=== PATIENT | female | born 1965 | race Caucasian/White ===

== ENCOUNTER → 2017-01-20 | Outpatient (CLI) | payer BC ==
--- NOTE | 2017-01-21 10:43 | MM ---
Reason for exam: screening (asymptomatic). Last mammogram was performed 1 year and 3 months ago. History: Patient is postmenopausal and had first child at age 35. Family history of breast cancer in grandmother at age 21. Physical Findings: A clinical breast exam by your physician is recommended on an annual basis and results should be correlated with mammographic findings. MG Screening Mammo Implant/CAD Bilateral CC, MLO, and ID view(s) were taken. Prior study comparison: October 29, 2015, bilateral MG screening mammo w CAD. September 05, 2013, bilateral digital screening mammo w/CAD. There are scattered fibroglandular densities. Implants are intact. No significant changes when compared with prior studies. ASSESSMENT: Negative, BI-RAD 1 RECOMMENDATION: Routine screening mammogram of both breasts in 1 year.
== END | disposition home or self-care (01) ==
LOC: RADMAMWWP 08:14
PROVIDERS: ATTEND Obstetrics & Gynecology
DX: Z12.31 Encounter for screening mammogram for malignant neoplasm of breast (principal); Z98.82 Breast implant status

== ENCOUNTER → 2018-04-28 | Outpatient (CLI) | payer BC | END | disposition home or self-care (01) | LOC: LABWHC1 08:22 | PROVIDERS: ATTEND Obstetrics & Gynecology | DX: N95.1 Menopausal and female climacteric states (principal); R68.82 Decreased libido | CPT/HCPCS: 36415; 82670; 83001; 84403 ==

== ENCOUNTER → 2018-04-28 | Outpatient (CLI) | payer BC ==
--- NOTE | 2018-04-28 14:12 | MM ---
Reason for exam: screening (asymptomatic). Last mammogram was performed 1 year and 3 months ago. History: Patient is postmenopausal and had first child at age 35. Family history of breast cancer in grandmother at age 21. Silicone gel implants in both breasts, January 2016. Physical Findings: A clinical breast exam by your physician is recommended on an annual basis and results should be correlated with mammographic findings. MG Screening Mammo Implant/CAD Bilateral CC, MLO, and ID view(s) were taken. Prior study comparison: January 20, 2017, bilateral MG screening mammo implant/CAD. October 29, 2015, bilateral MG screening mammo w CAD. The breast tissue is heterogeneously dense. This may lower the sensitivity of mammography. Asymmetric breast tissue left outer breast, stable. There is no discrete abnormality. Bilateral subpectoral implants redemonstrated. ASSESSMENT: Benign, BI-RAD 2 RECOMMENDATION: Routine screening mammogram of both breasts in 1 year.
== END | disposition home or self-care (01) ==
LOC: RADMAMWWP 07:40
PROVIDERS: ATTEND Obstetrics & Gynecology
DX: Z12.31 Encounter for screening mammogram for malignant neoplasm of breast (principal); Z80.3 Family history of malignant neoplasm of breast
CPT/HCPCS: 77067

== ENCOUNTER → 2019-06-02 | Outpatient (CLI) | payer BC ==
[2019-06-02 16:38] LABS: Chol/HDL Ratio 3.71; LDL Cholesterol,Calculated 167.4 mg/dL (0.0-131.0); VLDL Calculation 22.6 mg/dL (5.00-40.00)
[2019-06-02 22:18] LABS: Hemoglobin A1C 5.5 % (4.0-6.0)
== END | disposition home or self-care (01) ==
LOC: LABWHC1 07:17
PROVIDERS: ATTEND Obstetrics & Gynecology
DX: R73.9 Hyperglycemia, unspecified (principal); E05.90 Thyrotoxicosis, unspecified without thyrotoxic crisis or storm
CPT/HCPCS: 36415; 80061; 82670; 82947; 83001; 83036; 84403; 84436; 84443; 84481

== ENCOUNTER → 2019-08-09 | Outpatient (CLI) | payer BC ==
--- NOTE | 2019-08-10 11:47 | MM ---
Reason for exam: screening (asymptomatic). Last mammogram was performed 1 year and 3 months ago. History: Patient is postmenopausal and had first child at age 35. Silicone gel implants in both breasts, January 2016. Took progesterone for 2 years. Took other hormone for 2 years. Physical Findings: A clinical breast exam by your physician is recommended on an annual basis and results should be correlated with mammographic findings. MG Screening Mammo Implant/CAD Bilateral CC, MLO, and ID view(s) were taken. Prior study comparison: April 28, 2018, bilateral MG screening mammo implant/CAD. January 20, 2017, bilateral MG screening mammo implant/CAD. There are scattered fibroglandular densities. No suspicious abnormality. Prepectoral silicone implants bilaterally. No significant changes when compared with prior studies. ASSESSMENT: Negative, BI-RAD 1 RECOMMENDATION: Routine screening mammogram of both breasts in 1 year.
== END | disposition home or self-care (01) ==
LOC: RADMAMWWP 09:30
PROVIDERS: ATTEND Obstetrics & Gynecology
DX: Z12.31 Encounter for screening mammogram for malignant neoplasm of breast (principal)
CPT/HCPCS: 77067

== ENCOUNTER → 2020-05-02 | Outpatient (CLI) | payer BC ==
[2020-05-02 14:10] LABS: Basophils # (A) 0.1 k/uL (0-0.2); Basophils % (A) 1 %; Eosinophils # (A) 0.2 k/uL (0-0.7); Eosinophils % (A) 2 %; HCT 47.8 % (34.0-46.0); Lymphocytes # (A) 2.5 k/uL (1.0-4.8); Lymphocytes % (A) 25 %; MCH 28.7 pg (25.0-35.0); MCHC 31.3 g/dL (31.0-37.0); MCV 91.6 fL (80.0-100.0); Mean Platelet Volume 7.5; Monocytes # (A) 0.6 k/uL (0-1.0); Monocytes % (A) 6 %; Neutrophils # (A) 6.3 k/uL (1.3-7.7); Neutrophils % (A) 63 %; Platelet Count 322 k/uL (150-450); RBC 5.21 m/uL (3.80-5.40); RDW 12.7 % (11.5-15.5); WBC 9.9 k/uL (3.8-10.6)
== END | disposition home or self-care (01) ==
LOC: LABPAT 12:36
PROVIDERS: ATTEND Obstetrics & Gynecology
DX: Z01.818 Encounter for other preprocedural examination (principal); M48.02 Spinal stenosis, cervical region; N95.0 Postmenopausal bleeding
CPT/HCPCS: 36415; 85025; 93005

== ENCOUNTER 2020-05-11 07:12 | Day surgery (SDC) | payer BC ==
[2020-05-07 11:47] VITALS: BMI 35.9
[~2020-05-11 07:12] MED LIST: DEXAMETHASONE SOD PHOSPHATE 10 MG/ML 1 ML VIAL IV ONE; HYDROmorphone 0.5 MG/0.5 ML SYRINGE IVP PRN; LACTATED RINGERS 1,000 ML IV SCH; MIDAZOLAM 2 MG/2 ML VIAL IV PRN; ONDANSETRON 4 MG/2 ML VIAL IVP ONE; Pre Op ABX Message 1 EACH MISC MISCELLANE ONE; SCOPOLAMINE 1.5MG/72HR PATCH TRANSDERM ONE
[2020-05-11] MEDS ORDERED: ONDANSETRON 4 MG/2 ML VIAL ONE (07:44)
[2020-05-11] MEDS ORDERED: LIDOCAINE 1% (10MG/ML) FOR IV START INTRADERMA ONE (07:55)
[2020-05-11 08:01] VITALS: TEMP 97.7
[2020-05-11] MEDS ORDERED: PROPOFOL 10 MG/ML 20 ML VIAL IV ONE (08:40)
[2020-05-11] MEDS ORDERED: KETOROLAC 30 MG/ML 1 ML VIAL ONE (08:40)
[2020-05-11] MEDS ORDERED: fentaNYL (PF) 50 MCG/ML 2 ML AMP ONE (08:40)
[2020-05-11] MEDS ORDERED: LIDOCAINE 1% INJ 10MG/ML (20 ML MDV) ONE (08:40)
[2020-05-11] MEDS ORDERED: MIDAZOLAM 2 MG/2 ML VIAL ONE (08:40)
[2020-05-11] MEDS ORDERED: SIMETHICONE 80 MG CHEWABLE PO PRN (09:14)
[2020-05-11] MEDS ORDERED: KETOROLAC 15 MG/ML 1 ML VIAL IVP PRN (09:14)
[2020-05-11] MEDS ORDERED: METOCLOPRAMIDE 5 MG/ML 2 ML VIAL IVP PRN (09:14)
[2020-05-11] MEDS ORDERED: ONDANSETRON 4 MG/2 ML VIAL IVP PRN (09:14)
[2020-05-11] MEDS ORDERED: Acetaminophen-Codeine 300-30mg TAB PO PRN ×2 (09:14)
[2020-05-11] MEDS ORDERED: diphenhydrAMINE 50 MG/ML 1 ML VIAL IVP PRN (09:14)
[2020-05-11] MEDS ORDERED: IBUPROFEN 600 MG TAB PO PRN (09:14)
[2020-05-11] MEDS ORDERED: LACTATED RINGERS 1,000 ML IV SCH (09:15)
--- NOTE | 2020-05-11 09:20 | P.OP ---
Date of Procedure: 05/11/20 Preoperative Diagnosis: #1. Postmenopausal bleeding #2. Cervical stenosis Postoperative Diagnosis: Same Procedure(s) Performed: #1. Diagnostic hysteroscopy 2. Dilation and curettage Anesthesia: other (Gen. by LMA) Surgeon: Jim Fortune Estimated Blood Loss (ml): 2 IV fluids (ml): 500 Urine output (ml): 100 Pathology: other (Endometrial curettings) Condition: stable Disposition: PACU Operative Findings: Preoperative pelvic examination demonstrated a roughly 4-5 week midplane normal shaped uterus with normal adnexa bilaterally. Uterus was very high in the pelvis. Intraoperatively, there was stenosis present which was ultimately broken down with a small dilator. The uterus sounded to 8 cm. The hysteroscopic views of the endometrial cavity demonstrated only shaggy endometrium with no evidence of polyps, fibroids, or any other obvious pathology. The bilateral tubal ostia were noted. A small to moderate amount of tissue was returned onto a Telfa. There was minimal ongoing bleeding following the procedure. The patient is not a candidate for vaginal hysterectomy. Description of Procedure: The patient was prepped and draped in usual fashion after general anesthesia was admission by the anesthesiologist. A weighted speculum was placed and the bladder drained of approximately 100 mL of clear jan urine. The anterior lip cervix was ultimately grasped with a single-tooth tenaculum and attempts to pass a uterine sound were unsuccessful secondary to stenosis. The smallest uterine dilator was then utilized to enter the uterus at which time serial dilation was carried out to admit the sound which demonstrated a depth of 8 cm. Further serial dilation was carried out to admit the diagnostic hysteroscope which was placed in the fundus the uterus and the cavity distended with saline. The findings are as noted above. There was no obvious pathology other than a moderate amount of shaggy endometrial tissue primarily along the posterior wall of the uterus. The uterine/tubal ostia were seen bilaterally. After adequate hysteroscopy been performed, the scope was removed and set aside and a small sharp curette introduced into the cavity where the endometrium was thoroughly and circumferentially curetted onto a Telfa placed in the vagina. There is a small to slightly more than small amount of tissue returned on to the cavity and the typical gritty texture was encountered throughout. After 2-3 circumferential passes were carried out, the curet was set aside and the Telfa passed for placement in a container for pathology. There was no ongoing bleeding from the cervix the. The tenaculum was removed and was noted to not be bleeding either. All instrumentation was then removed and procedure terminated. Assessment a blood loss for the entire case was approximately 2 mL. There were no complications. All sponge, instrument, and needle counts were correct. The patient tolerated the procedure well and proceeded to the recovery room in stable condition.
[2020-05-11] MEDS ORDERED: LACTATED RINGERS 1,000 ML IV ONE ×2 (09:30)
[2020-05-11 10:08] VITALS: PULSE 73; RESP 18
[2020-05-11 10:25] VITALS: BP 152/67
== END 2020-05-11 10:52 | disposition home or self-care (01) ==
LOC: OR 07:12
PROVIDERS: ATTEND Obstetrics & Gynecology
DX: N88.2 Stricture and stenosis of cervix uteri (principal); N95.0 Postmenopausal bleeding; G90.50 Complex regional pain syndrome I, unspecified; F32.9 Major depressive disorder, single episode, unspecified; I10 Essential (primary) hypertension; G47.33 Obstructive sleep apnea (adult) (pediatric); E07.9 Disorder of thyroid, unspecified; Z98.51 Tubal ligation status; Z98.890 Other specified postprocedural states; Z79.899 Other long term (current) drug therapy; Z79.890 Hormone replacement therapy; Z88.1 Allergy status to other antibiotic agents; Z88.0 Allergy status to penicillin
CPT/HCPCS: 58558; J2250; J1100; J2405; J2001; J3010; J1885; J2704; 88305

== ENCOUNTER → 2020-12-14 | Outpatient (CLI) | payer BC ==
--- NOTE | 2020-12-20 10:40 | MM ---
Reason for exam: screening (asymptomatic). Last mammogram was performed 1 year and 4 months ago. History: Patient is postmenopausal and had first child at age 35. Silicone gel implants in both breasts, January 2016. Took progesterone for 2 years. Took other hormone for 2 years. Physical Findings: A clinical breast exam by your physician is recommended on an annual basis and results should be correlated with mammographic findings. MG Screening Mammo Implant/CAD Bilateral CC, MLO, and ID view(s) were taken. Prior study comparison: August 09, 2019, bilateral MG screening mammo implant/CAD. April 28, 2018, bilateral MG screening mammo implant/CAD. There are scattered fibroglandular densities. Retropectoral silicone implants. Posterior lateral asymmetric density on the left CC view was present in 2017. No significant changes when compared with prior studies. ASSESSMENT: Benign, BI-RAD 2 RECOMMENDATION: Routine screening mammogram of both breasts in 1 year.
== END | disposition home or self-care (01) ==
LOC: RADMAMWWP 16:43
PROVIDERS: ATTEND Obstetrics & Gynecology
DX: Z12.31 Encounter for screening mammogram for malignant neoplasm of breast (principal)
CPT/HCPCS: 77067

== ENCOUNTER 2023-01-17 09:26 | Emergency (ER) | payer BC ==
[2023-01-17 09:41] VITALS: TEMP 98
[2023-01-17] MEDS ORDERED: KETOROLAC 15 MG/ML 1 ML VIAL IM STA (09:49)
[2023-01-17] MEDS ORDERED: HYDROcodone/APAP 5-325MG 1 EACH TAB PO STA (09:49)
[2023-01-17] MEDS ORDERED: BACLOFEN 10 MG TAB PO ONE (09:49)
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
--- NOTE | 2023-01-17 10:24 | XR ---
Number spine HISTORY: Back pain COMPARISON: None. TECHNIQUE: 3 views lumbar spine were obtained. These: The lumbar vertebral segments are normal in height and alignment and there is no fracture subluxation . The disc spaces are well-maintained in height and there is no significant degenerative disc disease . Facet joints are intact. There is no spondylolysis or spondylolisthesis. IMPRESSION: No significant abnormality seen.
--- NOTE | 2023-01-17 10:25 | XR ---
Right hip. HISTORY: Pain without trauma COMPARISON: None. TECHNIQUE: 2 views the right hip were obtained. FINDINGS: There is no fracture, dislocation, intraosseous or intra-articular abnormality. There are no soft tis micaela abnormalities. IMPRESSION: No significant abnormality seen.
[2023-01-17] MEDS ORDERED: ACET/COD 300 MG/30 MG STARTER PACK 6 TAB BTL PO STA (10:42)
[2023-01-17 11:12] VITALS: BP 140/81; PULSE 68; RESP 16
== END 2023-01-17 11:12 | disposition home or self-care (01) ==
LOC: EC 09:26
DX: S39.012A Strain of muscle, fascia and tendon of lower back, initial encounter (principal); M54.41 Lumbago with sciatica, right side; I10 Essential (primary) hypertension; E07.9 Disorder of thyroid, unspecified; Z87.891 Personal history of nicotine dependence; Z79.890 Hormone replacement therapy; Z79.899 Other long term (current) drug therapy; Z88.0 Allergy status to penicillin; X58.XXXA Exposure to other specified factors, initial encounter
CPT/HCPCS: 72100; 73502; 99283; 96372; J1885

== ENCOUNTER → 2023-04-15 | Outpatient (CLI) | payer BC ==
--- NOTE | 2023-04-15 13:17 | MM ---
Reason for Exam: Screening (asymptomatic). Last mammogram was performed 2 year(s) and 4 month(s) ago. Patient History: Menarche at age 11. First Full-Term at age 35. Late child-bearing (after 30). Postmenopausal. Patient used Progesterone for 2 years. 01/2016, Bilateral Implants. Risk Values: Hiral 5 year model risk: 1.9%. NCI Lifetime model risk: 10.2%. Prior Study Comparison: 04/28/2018 Bilateral Screening Mammogram, [facility]. 08/09/2019 Bilateral Screening Mammogram, [facility]. 12/14/2020 Bilateral Screening Mammogram, [facility]. Tissue Density: The breast tissue is heterogeneously dense. This may lower the sensitivity of mammography. Findings: Analyzed By CAD. Bilateral breast implants which appear intact. There is no suspicious group of microcalcifications or new suspicious mass in either breast. Overall Assessment: Negative, BI-RAD 1 Management: Screening Mammogram of both breasts in [address] [facility] will attempt to contact patient to return for supplemental views and ultrasound if indicated. Patient should continue monthly self-breast exams. A clinical breast exam by your physician is recommended on an annual basis. This exam should not preclude additional follow-up of suspicious palpable abnormalities. Note on Hiral scores and lifetime risk: 1. A Hiral score greater than 3% is considered moderate risk. If this is the case, consider specialist referral to assess eligibility for a risk reducing agent. 2. If overall lifetime risk for the development of breast cancer is 20% or higher, the patient may qualify for future screening with alternating mammogram and breast MRI. Electronically signed and approved by: Dejan Carpenter DO
== END | disposition home or self-care (01) ==
LOC: RADMAMWWP 10:50
PROVIDERS: ATTEND Obstetrics & Gynecology
DX: Z12.31 Encounter for screening mammogram for malignant neoplasm of breast (principal); Z78.0 Asymptomatic menopausal state; Z98.82 Breast implant status
CPT/HCPCS: 77067

== ENCOUNTER 2023-10-28 02:11 | Inpatient (IN) | payer BC ==
--- NOTE | 2023-10-28 02:31 | ED ---
Overdose HPI <Dixon Walters - Last Filed: 10/28/23 16:05> - General Source: patient, EMS Mode of arrival: EMS Limitations: no limitations <Lona Matias - Last Filed: 11/03/23 15:54> - General Chief Complaint: Overdose Stated Complaint: ETOH Time Seen by Provider: 10/28/23 02:20 - History of Present Illness Initial Comments: 58-year-old female presents to the emergency department after an overdose. She states that she drinks 6 [place] Light's starting at 4 PM. She then took 8, 1 mg Xanax tablets and four 5-325 mg [place] tablets. She states that she did this in an attempt to harm herself. She denies history of hospitalization for mental health. No history of suicide attempt. Denies homicidal ideations. No hallucinations. Denies any illicit substance abuse. No other alleviating, precipitating or modifying factors (Lona Matias) - Related Data Home Medications Medication Instructions Recorded Confirmed amLODIPine BESYLATE [Norvasc] 2.5 mg PO DAILY 05/07/20 10/28/23 Fluticasone Nasal [place] [Flonase 2 spray EA NOSTRIL DAILY 10/28/23 10/28/23 Nasal [place]] Ibuprofen [Motrin] 800 mg PO Q8H PRN 10/28/23 10/28/23 Losartan Potassium 50 mg PO DAILY 10/28/23 10/28/23 Oxybutynin Xl [Ditropan XL] 5 mg PO DAILY 10/28/23 10/28/23 Thyroid,Pork [Casing Builder Thyroid] 30 mg PO DAILY 10/28/23 10/28/23 Previous Rx's Medication Instructions Recorded Escitalopram [Lexapro] 10 mg PO DAILY 30 Days #30 tab 11/03/23 Gabapentin [Neurontin] 400 mg PO HS cap 11/03/23 Mirtazapine [Remeron] 15 mg PO HS 30 Days #30 tab 11/03/23 Allergies Allergy/AdvReac Type Severity Reaction Status Date / Time Penicillins Allergy Rash/Hives Verified 01/17/23 09:41 Review of Systems ROS Other: All systems not noted in ROS Statement are negative. <Dixon Walters - Last Filed: 10/28/23 16:05> ROS Other: All systems not noted in ROS Statement are negative. <Lona Matias - Last Filed: 11/03/23 15:54> ROS Statement: Those systems with pertinent positive or pertinent negative responses have been documented in the HPI. Past Medical History Past Medical History: Hypertension, Sleep Apnea/CPAP/BIPAP, Thyroid Disorder Additional Past Medical History / Comment(s): NO C PAP USED History of Any Multi-Drug Resistant Organisms: None Reported Past Surgical History: Section, Tubal Ligation Additional Past Surgical History / Comment(s): ELBOW SURGERY, LEFT WRIST Past Anesthesia/Blood Transfusion Reactions: Family History of Problems w/ Anesthesia, Postoperative Nausea & Vomiting (PONV) Additional Past Anesthesia/Blood Transfusion Reaction / Comment(s): MOM HAD A PROBLEM ANESTHESIA BUT UNKNOWN WHAT SYMPTOMS Past Psychological History: Anxiety, Depression Smoking Status: Former smoker Past Alcohol Use History: Occasional Past Drug Use History: None Reported - Past Family History Father Family Medical History: Cancer <Lona Matias - Last Filed: 11/03/23 15:54> General Exam Limitations: altered mental status General appearance: alert, appears intoxicated, other (Slurred speech) Head exam: Present: atraumatic, normocephalic, normal inspection Eye exam: Present: normal appearance, PERRL, EOMI. Absent: scleral icterus, conjunctival injection, periorbital swelling ENT exam: Present: normal exam, mucous membranes moist Neck exam: Present: normal inspection. Absent: tenderness, meningismus, lympha denopathy Respiratory exam: Present: normal lung sounds bilaterally. Absent: respiratory distress, wheezes, rales, rhonchi, stridor Cardiovascular Exam: Present: regular rate, normal rhythm, normal heart sounds. Absent: systolic murmur, diastolic murmur, rubs, gallop, clicks GI/Abdominal exam: Present: soft, normal bowel sounds. Absent: distended, tenderness, guarding, rebound, rigid Extremities exam: Present: normal inspection, full ROM, normal capillary refill. Absent: tenderness, pedal edema, joint swelling, calf tenderness Back exam: Present: normal inspection Neurological exam: Present: alert, oriented X3, CN II-XII intact Psychiatric exam: Present: normal affect, normal mood Skin exam: Present: warm, dry, intact, normal color. Absent: rash <Lona Matias - Last Filed: 11/03/23 15:54> Course Vital Signs 10/28/23 10/28/23 10/28/23 02:20 02:26 02:43 Temperature Pulse Rate 65 71 Respiratory 16 18 Rate Blood Pressure 116/72 116/72 O2 Sat by Pulse 92 L 96 85 L Oximetry 10/28/23 10/28/23 10/28/23 02:45 03:00 04:20 Temperature Pulse Rate 70 73 Respiratory 11 L 16 12 Rate Blood Pressure 100/69 110/63 O2 Sat by Pulse 98 96 Oximetry 10/28/23 10/28/23 06:00 16:49 Temperature 97.4 F L 98.9 F Pulse Rate 78 75 Respiratory 18 18 Rate Blood Pressure 125/67 173/95 O2 Sat by Pulse 97 98 Oximetry Medical Decision Making - Lab Data Result diagrams: 10/28/23 03:30 10/28/23 02:40 <Dixon Walters - Last Filed: 10/28/23 16:05> - Lab Data Result diagrams: 10/28/23 03:30 10/28/23 02:40 <Lona Matias - Last Filed: 11/03/23 15:54> - Medical Decision Making Patient was medically cleared by prior physician. Patient drank alcohol and had a suicide attempt by overdose last night by taking 81 mg Xanax tablets as well as for [place] 5 tablets. She told medical logistics specialist at that time that this was an attempt to harm herself. Was medically cleared and was pending psychiatric evaluation. EPS evaluated the patient and I was notified by EPS that patient does not meet inpatient criteria. Clinical certificate was completed by myself. Petition already completed. Patient will be admitted to inpatient psychiatry at our facility. Diagnosis/symptom? @ -Depression Acute, or Chronic, or Acute on Chronic? @ -Acute on chronic Uncomplicated (without systemic symptoms) or Complicated (systemic symptoms)? @ -Complicated Side effects of treatment? @ -None Exacerbation, Progression, or Severe Exacerbation] @ -No Poses a threat to life or bodily function? @ -Yes (Dixon Walters) Was pt. sent in by a medical professional or institution (, PA, EQUIPMENT CLEANER AND TESTER, urgent care, hospital, or group home...) When possible be specific @ -No Did you speak to anyone other than the patient for history (EMS, parent, family, police, friend...)? What history was obtained from this source @ -EMS Did you review nursing and triage notes (agree or disagree)? Why? @ -I reviewed and agree with nursing and triage notes Were old charts reviewed (outside hosp., previous admission, EMS record, old EKG, old radiological studies, urgent care reports/EKG's, group home records)? Report findings @ -No old charts were reviewed Differential Diagnosis (chest pain, altered mental status, abdominal pain women, abdominal pain men, vaginal bleeding, weakness, fever, dyspnea, syncope, headache, dizziness, GI bleed, back pain, seizure, CVA, palpatations, mental health, musculoskeletal)? @ -Differential Mental Health Depression, anxiety, bipolar, psychosis, schizophrenia, borderline personality, situational depression, adjustment disorder, behavioral disorder, brain tumor, malingering, substance abuse, encephalopathy, medication reaction, dementia, hypothyroidism, degenerative neurologic disorder, lupus.... This is not meant to be all-inclusive list EKG interpreted by me (3pts min.). @ -Yes and demonstrates sinus rhythm with a rate of 69. MO interval 152. QRS 98. QTc of 409. No acute ST segment elevations or depressions X-rays interpreted by me (1pt min.). @ -None done CT interpreted by me (1pt min.). @ -None done U/S interpreted by me (1pt. min.). @ -None done What testing was considered but not performed or refused? (CT, X-rays, U/S, labs)? Why? @ -None What meds were considered but not given or refused? Why? @ -None Did you discuss the management of the patient with other professionals (aranza bush i.e. , PA, EQUIPMENT CLEANER AND TESTER, lab, RT, psych nurse, social media senior associate, multi slide machine tender, teacher, hearing officer, special education case manager)? Give summary @ -With EPS nurse Was smoking cessation discussed for >3mins.? @ -No Was critical care preformed (if so, how long)? @ -No Were there social determinants of health that impacted care today? How? (Homelessness, low income, unemployed, alcoholism, drug addiction, transportat ion, low edu. Level, literacy, decrease access to med. care, senior living, rehab)? @ -No Was there de-escalation of care discussed even if they declined (Discuss DNR or withdrawal of care, Hospice)? DNR status @ -No What co-morbidities impacted this encounter? (DM, HTN, Smoking, COPD, CAD, Cancer, CVA, ARF, Chemo, Hep., AIDS, mental health diagnosis, sleep apnea, morbid obesity)? @ -None Was patient admitted / discharged? Hospital course, mention meds given and route, prescriptions, significant lab abnormalities, going to OR and other pertinent info. @ -Upon arrival patient was placed into room 1. Thorough history and physical exam was performed. Patient does have some slurring of her words. She was observed for approximately 30 minutes and it is noted that the patient does have hypoxia into the high 80s. She was given a dose of Narcan 0.4 mg and does have improvement in her mental state. Alcohol is 100. Patient is cleared for EPS evaluation at 11 am Undiagnosed new problem with uncertain prognosis? @ -No Drug Therapy requiring intensive monitoring for toxicity (Heparin, Nitro, In sulin, Cardizem)? @ -No Were any procedures done? @ -No Diagnosis/symptom? @ -Acute intentional opiate and benzo medication overdose, suicide attempt Acute, or Chronic, or Acute on Chronic? @ -acute Uncomplicated (without systemic symptoms) or Complicated (systemic symptoms)? @ -complicated Side effects of treatment? @ -No Exacerbation, Progression, or Severe Exacerbation? @ -No Poses a threat to life or bodily function? How? (Chest pain, [place], [place], pneumonia, PE, COPD, DKA, ARF, appy, cholecystitis, CVA, Diverticulitis, Homicidal, Suicidal, threat to staff... and all critical care pts) @ -yes, patient attempted to harm herself (Lona Matias) - Lab Data Lab Results 10/28/23 10/28/23 10/28/23 Range/Units 02:40 02:40 03:30 WBC 8.7 (3.8-10.6) k/uL RBC 4.92 (3.80-5.40) m/uL Hgb 14.3 (11.4-16.0) gm/dL Hct 44.1 (34.0-46.0) % MCV 89.6 (80.0-100.0) fL MCH 29.2 (25.0-35.0) pg MCHC 32.5 (31.0-37.0) g/dL RDW 12.3 (11.5-15.5) % Plt Count 266 (150-450) k/uL MPV 6.8 Neutrophils % 50 % Lymphocytes % 39 % Monocytes % 5 % Eosinophils % 4 % Basophils % 1 % Neutrophils # 4.3 (1.3-7.7) k/uL Lymphocytes # 3.4 (1.0-4.8) k/uL Monocytes # 0.4 (0-1.0) k/uL Eosinophils # 0.3 (0-0.7) k/uL Basophils # 0.1 (0-0.2) k/uL Sodium 137 (137-145) mmol/L Potassium 4.2 (3.5-5.1) mmol/L Chloride 107 (98-107) mmol/L Carbon Dioxide 19 L (22-30) mmol/L Anion Gap 11 mmol/L BUN 13 (7-17) mg/dL Creatinine 0.79 (0.52-1.04) mg/dL Est GFR (CKD-EPI)AfAm >90 (>60 ml/min/1.73 sqM) Est GFR (CKD-EPI)NonAf 83 (>60 ml/min/1.73 sqM) Glucose 97 (74-99) mg/dL Estimated Ave Glu mg/dL 123 mg/dL Hemoglobin A1c 5.9 (<=6.0) % Calcium 8.6 (8.4-10.2) mg/dL Total Bilirubin 0.8 (0.2-1.3) mg/dL AST 65 H (14-36) U/L ALT 86 H (4-34) U/L Alkaline Phosphatase 76 (38-126) U/L Total Protein 7.0 (6.3-8.2) g/dL Albumin 4.1 (3.5-5.0) g/dL TSH (0.465-4.680) mIU/L Urine Color Urine Appearance (Clear) Urine pH (5.0-8.0) Ur Specific [place] (1.001-1.035) Urine Protein (Negative) Urine Glucose (UA) (Negative) Urine Ketones (Negative) Urine Blood (Negative) Urine Nitrite (Negative) Urine Bilirubin (Negative) Urine Urobilinogen (<2.0) mg/dL Ur Leukocyte Esterase (Negative) Salicylates <1.0 mg/dL Urine Opiates Screen (NotDetected) Ur Oxycodone Screen (NotDetected) Urine Methadone Screen (NotDetected) Acetaminophen 13.9 ug/mL Ur Barbiturates Screen (NotDetected) U Tricyclic Antidepress (NotDetected) Ur Phencyclidine Scrn (NotDetected) Ur Amphetamines Screen (NotDetected) U Methamphetamines Scrn (NotDetected) U Benzodiazepines Scrn (NotDetected) Urine Cocaine Screen (NotDetected) U Marijuana (THC) Screen (NotDetected) Serum Alcohol 100 mg/dL SARS-CoV-2 (PCR) (Not Detectd) 10/28/23 10/28/23 10/28/23 Range/Units 03:30 03:38 16:47 WBC (3.8-10.6) k/uL RBC (3.80-5.40) m/uL Hgb (11.4-16.0) gm/dL Hct (34.0-46.0) % MCV (80.0-100.0) fL MCH (25.0-35.0) pg MCHC (31.0-37.0) g/dL RDW (11.5-15.5) % Plt Count (150-450) k/uL MPV Neutrophils % % Lymphocytes % % Monocytes % % Eosinophils % % Basophils % % Neutrophils # (1.3-7.7) k/uL Lymphocytes # (1.0-4.8) k/uL Monocytes # (0-1.0) k/uL Eosinophils # (0-0.7) k/uL Basophils # (0-0.2) k/uL Sodium (137-145) mmol/L Potassium (3.5-5.1) mmol/L Chloride (98-107) mmol/L Carbon Dioxide (22-30) mmol/L Anion Gap mmol/L BUN (7-17) mg/dL Creatinine (0.52-1.04) mg/dL Est GFR (CKD-EPI)AfAm (>60 ml/min/1.73 sqM) Est GFR (CKD-EPI)NonAf (>60 ml/min/1.73 sqM) Glucose (74-99) mg/dL Estimated Ave Glu mg/dL mg/dL Hemoglobin A1c (<=6.0) % Calcium (8.4-10.2) mg/dL Total Bilirubin (0.2-1.3) mg/dL AST (14-36) U/L ALT (4-34) U/L Alkaline Phosphatase (38-126) U/L Total Protein (6.3-8.2) g/dL Albumin (3.5-5.0) g/dL TSH 2.250 (0.465-4.680) mIU/L Urine Color Colorless Urine Appearance Clear (Clear) Urine pH 5.5 (5.0-8.0) Ur Specific [place] 1.003 (1.001-1.035) Urine Protein Negative (Negative) Urine Glucose (UA) Negative (Negative) Urine Ketones Negative (Negative) Urine Blood Negative (Negative) Urine Nitrite Negative (Negative) Urine Bilirubin Negative (Negative) Urine Urobilinogen <2.0 (<2.0) mg/dL Ur Leukocyte Esterase Negative (Negative) Salicylates mg/dL Urine Opiates Screen Detected H (NotDetected) Ur Oxycodone Screen Not Detected (NotDetected) Urine Methadone Screen Not Detected (NotDetected) Acetaminophen ug/mL Ur Barbiturates Screen Not Detected (NotDetected) U Tricyclic Antidepress Not Detected (NotDetected) Ur Phencyclidine Scrn Not Detected (NotDetected) Ur Amphetamines Screen Not Detected (NotDetected) U Methamphetamines Scrn Not Detected (NotDetected) U Benzodiazepines Scrn Detected H (NotDetected) Urine Cocaine Screen Not Detected (NotDetected) U Marijuana (THC) Screen Not Detected (NotDetected) Serum Alcohol mg/dL SARS-CoV-2 (PCR) Not Detected (Not Detectd) Disposition Time of Disposition: 16:08 <Dixon Walters - Last Filed: 10/28/23 16:05> <Lona Matias - Last Filed: 11/03/23 15:54> Clinical Impression: Suicide attempt, Overdose, Alcohol intoxication, Depression Disposition: TRANSFER TO PSYCH HOSP/UNIT Condition: Stable
[2023-10-28] MEDS: SODIUM CHLORIDE 0.9% 1,000 ML IV STA (02:41)
[2023-10-28] MEDS: NALOXONE 0.4 MG/ML 1 ML VIAL IVP STA (02:45)
[2023-10-28 03:42] LABS: ALT 86 U/L (4-34); Acetaminophen 13.9 ug/mL; African American GFR (CKD) >90 (>60 ml/min/1.73 sqM); Albumin 4.1 g/dL (3.5-5.0); Anion Gap 11 mmol/L; Blood Urea Nitrogen 13 mg/dL (7-17); Calcium 8.6 mg/dL (8.4-10.2); Carbon Dioxide 19 mmol/L (22-30); Chloride 107 mmol/L (98-107); Glucose 97 mg/dL (74-99); Non-African American GFR(CKD) 83 (>60 ml/min/1.73 sqM); Salicylate <1.0 mg/dL; Sodium 137 mmol/L (137-145); Total Bilirubin 0.8 mg/dL (0.2-1.3)
[2023-10-28 03:47] LABS: AST 65 U/L (14-36); Alkaline Phosphatase 76 U/L (38-126); Potassium 4.2 mmol/L (3.5-5.1)
[2023-10-28 03:48] LABS: Alcohol 100 mg/dL
[2023-10-28 04:07] LABS: Basophils # (A) 0.1 k/uL (0-0.2); Basophils % (A) 1 %; Eosinophils # (A) 0.3 k/uL (0-0.7); Eosinophils % (A) 4 %; HCT 44.1 % (34.0-46.0); HGB 14.3 gm/dL (11.4-16.0); Lymphocytes # (A) 3.4 k/uL (1.0-4.8); Lymphocytes % (A) 39 %; MCH 29.2 pg (25.0-35.0); MCHC 32.5 g/dL (31.0-37.0); MCV 89.6 fL (80.0-100.0); Mean Platelet Volume 6.8; Monocytes # (A) 0.4 k/uL (0-1.0); Monocytes % (A) 5 %; Neutrophils # (A) 4.3 k/uL (1.3-7.7); Neutrophils % (A) 50 %; Platelet Count 266 k/uL (150-450); RBC 4.92 m/uL (3.80-5.40); RDW 12.3 % (11.5-15.5); WBC 8.7 k/uL (3.8-10.6)
[2023-10-28 04:15] LABS: Amphetamine Screen,Urine Not Detected (NotDetected); Appearance,Urine Clear (Clear); Barbiturate Screen,Urine Not Detected (NotDetected); Benzodiazepines Screen,Urine Detected (NotDetected); Bilirubin,Urine Negative (Negative); Blood,Urine Negative (Negative); Cocaine Screen,Urine Not Detected (NotDetected); Color,Urine Colorless; Glucose,Urine (UA) Negative (Negative); Ketones,Urine Negative (Negative); Leukocyte Esterase,Urine Negative (Negative); Methadone Screen, Urine Not Detected (NotDetected); Nitrite,Urine Negative (Negative); Opiate Screen,Urine Detected (NotDetected); Oxycodone Screen, Urine Not Detected (NotDetected); PH, Urine 5.5 (5.0-8.0); Phencyclidine Screen,Urine Not Detected (NotDetected); Protein,Urine Negative (Negative); Specific Gravity,Urine 1.003 (1.001-1.035); Tricyclic Antidepressant,Urine Not Detected (NotDetected); Urn Cannabinoid Scrn Not Detected (NotDetected); Urobilinogen,Urine <2.0 mg/dL (<2.0)
[2023-10-28] MEDS ORDERED: MAG HYDROX/AL HYDROX/SIMETH 30 ML CUP PO PRN (20:58)
[2023-10-28] MEDS ORDERED: LORazepam 1 MG TAB PO PRN (21:00)
[2023-10-28] MEDS ORDERED: LORazepam 2 MG/ML INJ IM PRN (21:00)
[2023-10-28] MEDS ORDERED: LOSARTAN 50 MG TAB PO SCH (22:00)
[2023-10-28] MEDS: GABAPENTIN 400 MG CAP PO SCH (22:01)
[2023-10-28] MEDS: LOSARTAN 50 MG TAB PO SCH (22:04)
[2023-10-29] MEDS: OXYBUTYNIN XL 5 MG TAB.ER.24 PO SCH (09:21)
[2023-10-29] MEDS: amLODIPine 2.5 MG TAB PO SCH (09:21)
[2023-10-29] MEDS: THYROID, PORK 30 MG TAB PO SCH (09:21)
[2023-10-29] MEDS: NICOTINE 14MG/24HR PATCH TRANSDERM SCH (09:22)
--- NOTE | 2023-10-29 11:07 | CONS ---
CONSULTATION REASON FOR CONSULTATION: Advice regarding hypertension, other medication requested by Psychiatry. HISTORY OF PRESENT ILLNESS: This is a 58-year-old woman with a past medical history of multiple medical problems including hypertension, who was admitted with overdose and ETOH. There is no history of any fever, rigors, or chills at this time. No history of weight loss or PAST MEDICAL HISTORY: Reviewed include hypertension. Rest of the history and rest of the chart is also reviewed. HOME MEDICATIONS: Reviewed include Norvasc 2.5 mg daily. Rest of the medications reviewed. ALLERGIES: Penicillin. FAMILY HISTORY: History of cancer in the family. SOCIAL HISTORY: Previous history of smoking. Occasional alcohol. REVIEW OF SYSTEMS: A 14-point review is negative except as mentioned earlier. PHYSICAL EXAMINATION: VITAL SIGNS: Pulse is 59, blood pressure 175/78, and respirations 18. HEENT: Conjunctivae normal. NECK: No JVD. CARDIOVASCULAR: S1, S2. RESPIRATIONS: Clear to auscultation. ABDOMEN: Soft, nontender. LEGS: cranial nerves are normal. SKIN: No ulcer, rash, or bleeding. JOINTS: No active deforming arthropathy. LABORATORY DATA: Reviewed. ASSESSMENT: 1. Status post overdose. 2. Depression. 3. Elevated LFTs, possibly alcoholic hepatitis, mild. 4. Hypertension. 5. History of sleep apnea. 6. Anxiety and depression. RECOMMENDATIONS AND DISCUSSION: I recommend to continue current management and to monitor blood pressure closely. Resume the home medications. Recommend close followup with after discharge. Follow up LFTs as an outpatient. We will follow the patient closely with you. DENNIS / ABELN: [phone] / LIBIA
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
[2023-10-29] MEDS: ESCITALOPRAM 5 MG TAB PO SCH (12:58)
[2023-10-29] MEDS: MAGNESIUM HYDROXIDE 2,400 MG/30 ML CUP PO PRN (18:05)
[2023-10-29] MEDS: MIRTAZAPINE 15 MG TAB PO SCH (20:59)
[2023-10-30] MEDS: FLUTICASONE 50MCG/SPRAY NASAL 16GM EA NOSTRIL SCH (08:22)
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
[2023-10-31] MEDS: ESCITALOPRAM 5 MG TAB PO ONE (08:32)
[2023-10-31] MEDS: ACETAMINOPHEN TAB 325 MG TAB PO PRN (11:55)
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
[2023-11-01] MEDS: ESCITALOPRAM 10 MG TAB PO SCH (08:04)
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
--- NOTE | 2023-11-02 13:59 | P.PN ---
Progress Note - Text Progress Note Date: 11/02/23 Interval History: Patient was in the in the hallway, and was agreeable to speak with this movie writer. States she is doing really well today. She slept well last night, and is eating good. Patient claims she noticed herself laughing more, and being happier. Patient is attending groups, and participating in milieu. She denies any other concerns. At this time patient denies any suicidal or homicidal ideation, intent or plan. Patient denies any auditory, visual hallucinations and denies any paranoia or delusions. Patient denies any side effects from the medications and has been compliant with meds. Insight continues to be somewhat superficial however is mildly improving. MENTAL STATUS EXAM: General Appearance: Patient appears to be stated age, is alert, directable, and attempts to cooperate. Patient appears to have fair hygiene and grooming. Behavior: Patient is seated without any agitated behavior. Speech: Patient's speech is fluent and nonpressured. Mood/Affect: Patient reports their mood is improving, affect is congruent and constricted. improving Suicidality/Homicidality: Patient denies having any homicidal ideation intent or plan. Denies any suicidal ideations intent or plan Perceptions: Patient denies any visual hallucinations and denies any auditory hallucinations Though content/process: There is no evidence of any delusional thought content Memory and concentration: AOX3, grossly intact for the purposes of this session. Judgment and insight: improving IMPRESSIONS: Major depressive disorder, without psychotic features Suicide Attempt by means of overdose with alcohol and medication alcohol abuse History of TBI PLAN: -Patient is admitted under involuntary status to [facility] for stabilization of psychiatric symptoms and safety. Patient has not signed adult voluntary form or medication consent. -Medications : Lexapro 10mg daily for depression/anxiety. Remeron 15mg qhs for mood/sleep -Ativan and Haldol PRN for agitation/aggression -NRT - nonsmoker -SW on board for discharge planning. Encourage patient to participate in groups to work on coping skills. likely discharge tomorrow, if continues to psychiatrically improve. Patient deferred with banking attorney. nail mill worker to ensure with patient's son that home environment is safe, no guns or weapons present as patient is a high risk for overdose or suicide attempt, need to ensure home envt is safe.
[2023-11-02] MEDS: GABAPENTIN 400 MG CAP PO SCH (20:50)
[2023-11-03 06:20] VITALS: BP 126/80; PULSE 91; RESP 14; TEMP 97.3
[2023-11-03] MEDS: IBUPROFEN 800 MG TAB PO PRN (08:34)
--- NOTE | 2023-11-03 10:03 | P.PN ---
Progress Note - Text Progress Note Date: 11/03/23 Interval History: Patient was in the in the hallway, and was agreeable to speak with this caption writer. States she is doing really well today. She slept well last night, and is eating good. Patient claims she noticed herself laughing more, and being happier. Patient is attending groups, and participating in milieu. She denies any other concerns. At this time patient denies any suicidal or homicidal ideation, intent or plan. Patient denies any auditory, visual hallucinations and denies any paranoia or delusions. Patient denies any side effects from the medications and has been compliant with meds. Insight continues to be somewhat superficial however is mildly improving. MENTAL STATUS EXAM: General Appearance: Patient appears to be stated age, is alert, directable, and attempts to cooperate. Patient appears to have fair hygiene and grooming. Behavior: Patient is seated without any agitated behavior. Speech: Patient's speech is fluent and nonpressured. Mood/Affect: Patient reports their mood is improving, affect is congruent and constricted. improving Suicidality/Homicidality: Patient denies having any homicidal ideation intent or plan. Denies any suicidal ideations intent or plan Perceptions: Patient denies any visual hallucinations and denies any auditory hallucinations Though content/process: There is no evidence of any delusional thought content Memory and concentration: AOX3, grossly intact for the purposes of this session. Judgment and insight: improving IMPRESSIONS: Major depressive disorder, without psychotic features Suicide Attempt by means of overdose with alcohol and medication alcohol abuse History of TBI PLAN: -Patient is admitted under involuntary status to [facility] for stabilization of psychiatric symptoms and safety. Patient has not signed adult voluntary form or medication consent. -Medications : Lexapro 10mg daily for depression/anxiety. Remeron 15mg qhs for mood/sleep -Ativan and Haldol PRN for agitation/aggression -NRT - nonsmoker -SW on board for discharge planning. Encourage patient to participate in groups to work on coping skills. likely discharge tomorrow, if continues to psychiatrically improve. Patient deferred with deputy county attorney. electric utility lineworker to ensure with patient's son that home environment is safe, no guns or weapons present as patient is a high risk for overdose or suicide attempt, need to ensure home envt is safe.
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
== END 2023-11-03 13:55 | disposition home or self-care (01) | DRG 881 ==
LOC: EC 02:11 → 3MHU 20:39
PROVIDERS: ADMIT Psychiatry & Neurology Psychiatry; ATTEND Psychiatry & Neurology Psychiatry
DX: F32.9 Major depressive disorder, single episode, unspecified (principal); E07.9 Disorder of thyroid, unspecified; I10 Essential (primary) hypertension; F10.229 Alcohol dependence with intoxication, unspecified; T42.4X2A Poisoning by benzodiazepines, intentional self-harm, initial encounter; T40.2X2A Poisoning by other opioids, intentional self-harm, initial encounter; T51.0X2A Toxic effect of ethanol, intentional self-harm, initial encounter; Z11.52 Encounter for screening for COVID-19; Y90.5 Blood alcohol level of 100-119 mg/100 ml; G47.00 Insomnia, unspecified; R09.02 Hypoxemia; G47.30 Sleep apnea, unspecified; Z79.890 Hormone replacement therapy; Z79.899 Other long term (current) drug therapy; Z87.820 Personal history of traumatic brain injury; Z87.891 Personal history of nicotine dependence; Z88.0 Allergy status to penicillin; Z71.41 Alcohol abuse counseling and surveillance of alcoholic; Z71.51 Drug abuse counseling and surveillance of drug abuser; Z81.8 Family history of other mental and behavioral disorders
CPT/HCPCS: 36415; 80053; 80143; 80179; 80306; 80320; 81003; 83036; 84443; 85025; 87635; 93005; 96361; 96374; 99285

== ENCOUNTER → 2024-09-08 | Outpatient (CLI) | payer BC ==
--- NOTE | 2024-09-08 14:34 | BD ---
EXAMINATION TYPE: Axial Bone Density DATE OF EXAM: 09/08/2024 CLINICAL HISTORY: 59 years old Female. ICD-10 CODE: Z78.0 [place]YMP [place] , Additional History: Height: 61.25 Weight: 215 FRAX RISK QUESTIONS: Family History (Parent hip fracture): yes History of Fracture in Adulthood: yes Secondary Osteoporosis: no RISK FACTORS HISTORY OF: History of left Wrist Fracture: yes When: 2013 Surgery to \Wrist (left): yes When: 2013 MEDICATIONS: Thyroid Medications: yes Which medication: Synthroid How Lon+ years Osteoporosis Medications: no EXAM MEASUREMENTS: Bone mineral densitometry was performed using the Revuze System. Bone mineral density as measured about the Lumbar spine is: ----- L1-L4(G/cm2): 1.092 T Score Values are as follows: ----- L1: -1.9 ----- L2: -1.0 ----- L3: -0.1 ----- L4: -0.3 ----- L1-L4: -0.7 Z Score Values are as follows: ----- L1: -1.8 ----- L2: -0.9 ----- L3: 0.1 ----- L4: -0.1 ----- L1-L4: -0.6 Bone mineral density baseline Bone mineral density about the R hip (g/cm2): 0.998 Bone mineral density about the L hip (g/cm2): 1.023 T Score values are as follows: -----R Neck: -0.9 -----L Neck: -1.0 -----R Total: -0.1 -----L Total: 0.1 Z Score values are as follows: -----R Neck: -0.4 -----L Neck: -0.5 -----R Total: 0.1 -----L Total: 0.3 Bone mineral density baseline FRAX%s: The graph provided illustrates a 11.1% chance for a major osteoporotic fx and a 0.6% chance f or the hips probability for fx in 10 years time. IMPRESSION: Normal (Values between +1 and -1 indicate normal bone mass). Consider repeating this study in 5 year s or sooner if there is some new clinical indication. NOTE: T-SCORE=SD OF THE YOUNG ADULT MEAN. [facility] [place], , 09/08/2024 2:31 PM
--- NOTE | 2024-09-12 18:05 | MM ---
Reason for Exam: Screening (asymptomatic). Last mammogram was performed 1 year(s) and 5 month(s) ago. Patient History: Menarche at age 11. First Full-Term at age 35. Late child-bearing (after 30). Postmenopausal. Patient used Progesterone for 2 years. 01/2016, Bilateral Implants. Risk Values: Hiral 5 year model risk: 2.0%. NCI Lifetime model risk: 10.0%. Prior Study Comparison: 08/09/2019 Bilateral Screening Mammogram, [facility]. 12/14/2020 Bilateral Screening Mammogram, [facility]. 04/15/2023 Bilateral MG screening mammo implant/CAD, [facility]. Tissue Density: There are scattered areas of fibroglandular density. Findings: Analyzed By CAD. Redemonstrated retropectoral saline implants. There is no suspicious group of microcalcifications or new suspicious mass in either breast. Overall Assessment: Negative, BI-RAD 1 Management: Screening Mammogram of both breasts in 1 year. Patient should continue monthly self-breast exams. A clinical breast exam by your physician is recommended on an annual basis. This exam should not preclude additional follow-up of suspicious palpable abnormalities. Note on Hiral scores and lifetime risk: 1. A Hiral score greater than 3% is considered moderate risk. If this is the case, consider specialist referral to assess eligibility for a risk reducing agent. 2. If overall lifetime risk for the development of breast cancer is 20% or higher, the patient may qualify for future screening with alternating mammogram and breast MRI. [facility], , 09/12/2024 6:02 PM. Electronically signed and approved by: Nell Nguyễn M.D. Radiologist
== END | disposition home or self-care (01) ==
LOC: RADMAMWWP 09:24
PROVIDERS: ATTEND Obstetrics & Gynecology
DX: Z12.31 Encounter for screening mammogram for malignant neoplasm of breast (principal); Z78.0 Asymptomatic menopausal state; R92.323 Mammographic fibroglandular density, bilateral breasts
CPT/HCPCS: 77063; 77067; 77080